=== PATIENT | male | born 2000 | race Caucasian/White ===

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

== ENCOUNTER 2019-08-28 11:07 | Emergency (ER) | payer SELFPAY ==
[2019-08-28] MEDS ORDERED: ACETAMINOPHEN 325 MG TABLET PO ONE (12:12)
[2019-08-28] MEDS ORDERED: DIPH/PERTUSS(ACELL)/TETANUS VAC/PF 0.5 ML SYR (>=10YO) IM ONE (12:12)
--- NOTE | 2019-08-28 12:15 | ER Document Report ---
HPI - HPI Patient complains to provider of: Foot injury Time Seen by Provider: 08/28/19 12:12 Onset: Other - 3 days Onset/Duration: Persistent Quality of pain: Achy Pain Level: 4 Context: Patient presents with right foot pain. Patient states that he was using an ax, slipped and accidentally hit the top of his foot. Patient with healing laceration to dorsal aspect of right foot. Patient complains of persistent pain Associated Symptoms: denies: Fever, Nausea, Vomiting Exacerbated by: Standing, Movement, Walking Relieved by: Denies Similar symptoms previously: No Recently seen / treated by doctor: No - ROS ROS below otherwise negative: Yes Systems Reviewed and Negative: Yes All other systems reviewed and negative - CONSTITUTIONAL Constitutional: DENIES: Fever, Chills - NEURO Neurology: DENIES: Weakness - GASTROINTESTINAL Gastrointestinal: DENIES: Nausea - MUSCULOSKELETAL Musculoskeletal: REPORTS: Extremity pain - DERM Skin Color: Normal Skin Problems: Laceration Past Medical History - General Information source: Patient - Social History Smoking Status: Current Every Day Smoker Frequency of alcohol use: Occasional Drug Abuse: None Occupation: Foodservice Family History: Reviewed & Not Pertinent - Medical History Medical History: Negative Renal/ Medical History: Denies: Hx Peritoneal Dialysis Surgical Hx: Negative - Immunizations Immunizations up to date: Yes Hx Diphtheria, Pertussis, Tetanus Vaccination: Yes Vertical Provider Document - CONSTITUTIONAL Agree With Documented VS: Yes Exam Limitations: No Limitations General Appearance: WD/WN, No Apparent Distress - INFECTION CONTROL TRAVEL OUTSIDE OF THE [place] IN LAST 30 DAYS: No - HEENT HEENT: Atraumatic, Normocephalic - NECK Neck: Normal Inspection, Supple - RESPIRATORY Respiratory: Breath Sounds Normal, No Respiratory Distress - CARDIOVASCULAR Cardiovascular: Regular Rate, Regular Rhythm Pulses: Normal: Dorsalis pedis - MUSCULOSKELETAL/EXTREMETIES Musculoskeletal/Extremeties: MAEW, Tender - Tenderness to dorsal aspect right foot over the distal first metatarsal, no surrounding erythema, no obvious edema, No Edema. negative: Eccymosis - NEURO Level of Consciousness: Awake, Alert, Appropriate Motor/Sensory: No Motor Deficit - DERM Integumentary: Warm, Dry, Laceration - 1 cm laceration dorsal aspect of right foot Course - Re-evaluation Re-evalutation: 08/28/19 13:13 X-ray reviewed, no concern for fracture. Wound appears to be healing without any findings worrisome for infection, will refer to orthopedics for any persistent pain or problems. - Vital Signs Vital signs: Temp Pulse Resp BP Pulse Ox 98.8 F 85 16 138/60 H 100 08/28/19 11:11 08/28/19 11:11 08/28/19 11:11 08/28/19 11:11 08/28/19 11:11 - Diagnostic Test Radiology reviewed: Reports reviewed Discharge - Discharge Clinical Impression: Laceration of foot Qualifiers: Encounter type: initial encounter Laterality: right Qualified Code(s): S91.311A - Laceration without foreign body, right foot, initial encounter Condition: Stable Disposition: HOME, SELF-CARE Instructions: Dressing Instructions for Open Wounds ([facility]), Non-Sutured Laceration ([facility]), Tetanus Immunization Given ([facility]) Additional Instructions: Return immediately for any new or worsening symptoms Followup with your primary care provider, call tomorrow to make a followup appointment Weightbearing as tolerated Keep wound covered as it continues to heal, monitor for any signs of infection such as redness, streaks, fever, purulent drainage or any concerning new symptoms. Return as needed Prescriptions: Naproxen [Naprosyn 250 Nmg Tablet] 1 tab PO BID #14 tablet Forms: Return to Work Referrals: FRANCESCA BERRIOS MD [Primary Care Provider] - Follow up as needed [facility] [Provider Group] - Follow up as needed
--- NOTE | 2019-08-28 12:34 | RADIOLOGY REPORT (SQ) ---
EXAM DESCRIPTION: FOOT RIGHT COMPLETE IMAGES COMPLETED DATE/TIME: 08/28/2019 12:26 pm REASON FOR STUDY: axe struck r foot COMPARISON: None. NUMBER OF VIEWS: Three views. TECHNIQUE: AP, lateral and oblique radiographic images acquired of the right foot. LIMITATIONS: None. FINDINGS: MINERALIZATION: Normal. BONES: No acute fracture or dislocation. No worrisome bone lesions. JOINTS: No effusions. SOFT TISSUES: No soft tissue swelling. No foreign body. OTHER: No other significant finding. IMPRESSION: NEGATIVE STUDY OF THE RIGHT FOOT. NO RADIOGRAPHIC EVIDENCE OF ACUTE INJURY. TECHNICAL DOCUMENTATION: JOB ID: [id number] 2010 [employer]- All Rights Reserved Reading location - IP/workstation name: [email or web address]
[2019-08-28 13:35] VITALS: BP 113/55
== END 2019-08-28 13:36 | disposition home or self-care (01) ==
LOC: ER 11:07
DX: S91.311A Laceration without foreign body, right foot, initial encounter (principal); W27.0XXA Contact with workbench tool, initial encounter; Y93.89 Activity, other specified; F17.200 Nicotine dependence, unspecified, uncomplicated
CPT/HCPCS: 90715; 99283